=== PATIENT | male | born 1995 | race Caucasian/White ===

== ENCOUNTER 2018-08-27 18:00 | Emergency (ER) | payer SELFPAY ==
[~2018-08-27] VITALS: Ht 175.3 cm; Wt 92.5 kg
[2018-08-27 18:14] VITALS: Ht 175.3 cm; Wt 92.5 kg
[2018-08-27 19:15] VITALS: BP 119/81
== END 2018-08-27 19:22 | disposition home or self-care (01) ==
LOC: ED 18:00
DX: T15.02XA Foreign body in cornea, left eye, initial encounter (principal); H10.32 Unspecified acute conjunctivitis, left eye; J45.909 Unspecified asthma, uncomplicated; W20.8XXA Other cause of strike by thrown, projected or falling object, initial encounter; Y93.89 Activity, other specified; Y92.89 Other specified places as the place of occurrence of the external cause; Y99.8 Other external cause status
CPT/HCPCS: 90715

== ENCOUNTER 2020-09-11 16:07 | Emergency (ER) | payer OTHER ==
[~2020-09-11] VITALS: Ht 175.3 cm; Wt 107.5 kg
[2020-09-11 16:30] VITALS: Ht 175.3 cm; Wt 107.5 kg
[2020-09-11 17:49] VITALS: BP 123/76
== END 2020-09-11 17:49 | disposition home or self-care (01) ==
LOC: ED 16:07
DX: S01.01XD Laceration without foreign body of scalp, subsequent encounter (principal); J45.909 Unspecified asthma, uncomplicated; Z88.8 Allergy status to other drugs, medicaments and biological substances; X58.XXXD Exposure to other specified factors, subsequent encounter